=== PATIENT | male | born 2000 | race American Indian/Alaskan Native ===

== ENCOUNTER 2025-04-09 18:42 | Emergency (ER) | payer SELFPAY ==
[~2025-04-09] VITALS: Ht 170.2 cm; Wt 72.3 kg
[2025-04-09] MEDS ORDERED: IBUPROFEN 600 MG TAB PO ONE (20:15)
[2025-04-09 20:20] LABS: BILIRUBIN, URINE NEGATIVE (negative); BLOOD/HGB, URINE NEGATIVE (Negative); KETONE, URINE >=80 (Negative); LEUK ESTERASE, URINE NEGATIVE (negative); NITRITE, URINE NEGATIVE (negative); PH, URINE 6.5 (5-7)
[2025-04-09 20:32] LABS: AMPHETAMINES, URINE NEGATIVE (NEGATIVE); BARBITURATES, URINE NEGATIVE (NEGATIVE); BENZODIAZEPINE, URINE NEGATIVE (NEGATIVE); BUPRENORPHINE, URINE NEGATIVE (NEGATIVE); CANNABINOID, URINE POSITIVE (NEGATIVE); COCAINE, URINE NEGATIVE (NEGATIVE); ECSTASY, URINE NEGATIVE (NEGATIVE); FENTANYL, URINE NEGATIVE (NEGATIVE); METHADONE, URINE NEGATIVE (NEGATIVE); OPIATES, URINE NEGATIVE (NEGATIVE); OXYCODONE, URINE NEGATIVE (NEGATIVE); PHENCYCLIDINE, URINE NEGATIVE (NEGATIVE)
[2025-04-09 20:36] LABS: BASOPHILS 0.4 % (0.2-1.2); EOSINOPHILS 0.1 % (0.8-7.0); HEMATOCRIT 45.6 % (40.1-51.0); HEMOGLOBIN 15.7 g/dL (13.7-17.5); LYMPHOCYTES 8.8 % (21.8-53.1); MCH 31.2 PG (25.7-32.2); MCHC 34.4 g/dL (32.3-36.5); MCV 90.7 fL (79.0-92.2); MONOCYTES 6.3 % (5.3-12.2); PLATELET COUNT 254 K/uL (163-337); RBC 5.03 M/uL (4.63-6.08)
[2025-04-09] MEDS ORDERED: ONDANSETRON 4 MG TAB ODT SL ONE (21:00)
[2025-04-09 21:01] LABS: ACETAMINOPHEN 0 ug/mL (10-30); ALBUMIN 4.2 g/dL (3.4-5.0); ALBUMIN/GLOBULIN RATIO 1.35 (1.1-2.4); ALCOHOL, MEDICAL <3 ng/dL (<3); ALKALINE PHOSPHATASE 84 U/L (46-116); ALT (SGPT) 23 U/L (14-59); ANION GAP 14.6 (7-21); AST (SGOT) 22 U/L (15-37); BILIRUBIN, TOTAL 1.7 mg/dL (0.2-1.0); BUN/CREATININE RATIO 12.08 (6.0-28.6); CALCIUM 8.9 mg/dL (8.5-10.1); CARBON DIOXIDE 29 mmol/L (21-32); CHLORIDE 104 mmol/L (98-107); CREATININE, SERUM 0.91 mg/dL (0.70-1.30); GLOMERULAR FILTRATION RATE,EST 119 mL/min (>60); POTASSIUM 3.6 mmol/L (3.5-5.1); PROTEIN, TOTAL 7.3 g/dL (6.4-8.2); TSH, 3RD GENERATION 0.621 uIU/mL (0.358-3.740); UREA NITROGEN 11 mg/dL (7-18)
[2025-04-09 21:04] LABS: SALICYLATE <0.2 mg/dL (2.8-20.0)
[2025-04-10 13:03] VITALS: BP 131/67
== END 2025-04-10 13:05 | disposition home or self-care (01) ==
LOC: ED 18:42
PROVIDERS: Internal Medicine
DX: R45.851 Suicidal ideations (principal); S53.401A Unspecified sprain of right elbow, initial encounter; Y04.8XXA Assault by other bodily force, initial encounter
CPT/HCPCS: 36415; 73080; 73110; 73610; 73630; 80053; 80307; 81003; 84443; 85025; 99285; A9270; G0480

== ENCOUNTER 2025-05-18 02:48 | Emergency (ER) | payer OTHER ==
[~2025-05-18] VITALS: Ht 170.2 cm; Wt 69.7 kg
[2025-05-18] MEDS ORDERED: TETRACAINE HCL 0.5% 4 ML BTL OS SCH (03:00)
[2025-05-18 03:56] LABS: BASOPHILS 0.8 % (0.2-1.2); EOSINOPHILS 1.3 % (0.8-7.0); LYMPHOCYTES 28.7 % (21.8-53.1); MCH 31.3 PG (25.7-32.2); MCHC 35.5 g/dL (32.3-36.5); MCV 88.2 fL (79.0-92.2); MONOCYTES 5.4 % (5.3-12.2); NEUTROPHILS 63.5 % (34.0-67.9); RBC 4.99 M/uL (4.63-6.08)
[2025-05-18] MEDS ORDERED: DIPHTH,PERTUSS(ACELL),TET VAC 0.5 ML SYRINGE IM ONE (04:00)
[2025-05-18] MEDS ORDERED: HYDROmorphone HCL 1 MG/ML SYR IV PRN (04:00)
[2025-05-18 04:06] LABS: ALCOHOL, MEDICAL 40.0 ng/dL (<3); ALT (SGPT) 22.0 U/L (14-59); AST (SGOT) 14.0 U/L (15-37); GLOMERULAR FILTRATION RATE,EST 126.0 mL/min (>60); PROTEIN, TOTAL 7.6 g/dL (6.4-8.2); UREA NITROGEN 12.0 mg/dL (7-18)
[2025-05-18] MEDS ORDERED: LACTATED RINGER'S 1,000 ML IV ONE (04:15)
[2025-05-18] MEDS ORDERED: FAMOTIDINE 20 MG/ 2 ML VIAL IV ONE (04:15)
[2025-05-18 04:29] LABS: ABO A; ANTIBODY SCREEN NEGATIVE; RH POSITIVE
[2025-05-18] MEDS ORDERED: LACTATED RINGER'S 1,000 ML IV SCH (05:00)
[2025-05-18 05:39] VITALS: BP 113/64
== END 2025-05-18 05:41 | disposition short-term general hospital (02) ==
LOC: ED 02:48
PROVIDERS: Internal Medicine
DX: S01.112A Laceration without foreign body of left eyelid and periocular area, initial encounter (principal); X58.XXXA Exposure to other specified factors, initial encounter
CPT/HCPCS: 36415; 70450; 70486; 80053; 80307; 82550; 85025; 86850; 86900; 86901; 90471; 90715; 96361; 96374; 96375; 96376; 99285-25; G0480; J1171; J1790; J2405; J7121